=== PATIENT | female | born 1955 | race Native Hawaiian/Other Pacific Islander ===

== ENCOUNTER 2018-06-18 10:14 | Outpatient (CLI) | payer OTHER | END 2018-06-18 10:15 | disposition home or self-care (01) | LOC: RAD 10:14 ==

== ENCOUNTER 2018-06-23 11:37 | Outpatient (CLI) | payer OTHER | END 2018-06-23 11:38 | disposition home or self-care (01) | LOC: CARDIO 11:37 ==

== ENCOUNTER 2018-10-04 07:49 | Outpatient (CLI) | payer OTHER | END 2018-10-04 07:50 | disposition home or self-care (01) | LOC: LAB 07:49 ==